=== PATIENT | male | born 1965 | race Caucasian/White ===

== ENCOUNTER 2024-02-06 16:26 | Emergency (ER) | payer MEDICAID ==
[~2024-02-06] VITALS: Ht 172.7 cm; Wt 82.0 kg
[~2024-02-06 16:26] MED LIST: OMEP5TAB; PAXIL; PEN250T
[2024-02-06 17:02] LABS: Urine Bacteria FEW /hpf (None Seen); Urine Blood Negative /uL (Negative); Urine Clarity Clear (Clear); Urine Color Light-Yellow (Yellow); Urine Hyaline Cast FEW /lpf (0 - 2); Urine Protein, UAD Negative (Negative); Urine Specific Gravity 1.009 (1.001-1.035); Urine Urobilinogen Normal (Negative); Urine WBC 1 /hpf (0 - 3); Urine pH 6.5 (5.0-9.0)
[2024-02-06] MEDS: levETIRAcetam 1000 mg/100ml 100 ML IV ONE (17:44)
[2024-02-06 17:49] LABS: Basophils # (auto) 0 10 ^3/uL (0-0.2); Basophils % (auto) 0.4 % (0.0-2.0); Eosinophils # (auto) 0 10 ^3/uL (0-0.8); Eosinophils % (auto) 0.3 % (0.0-7.0); Hematocrit 42.3 % (41.0-53.0); Hemoglobin 14.6 g/dL (13.5-17.5); Lymphocytes # (auto) 1.6 10 ^3/uL (0.4-5.4); Lymphocytes % (auto) 12.7 % (10.0-50.0); Mean Corpuscular Hgb Conc. 34.5 g/dL (32.0-36.0); Mean Corpuscular Volume 101.3 fL (80.0-100.0); Monocytes # (auto) 0.7 10 ^3/uL (0-1.3); Monocytes % (auto) 5.8 % (0.0-12.0); Neutrophils # (auto) 9.9 10 ^3/uL (1.6-8.6); Neutrophils % (auto) 80.8 % (37.0-80.0); Red Blood Cells 4.17 10^6/uL (4.5-5.90); Red Cell Distribution Width 13.1 % (11.8-14.3); White Blood Cell 12.3 10^3/uL (4.4-10.8)
[2024-02-06 18:01] LABS: Carbon Dioxide 23 mmol/L (20-30)
[2024-02-06 18:02] LABS: Calcium 7.5 mg/dL (8.7-10.4)
[2024-02-06 18:07] LABS: Glucose 115 mg/dL (74-106)
[2024-02-06 18:14] VITALS: BP 140/90
[2024-02-06 18:15] VITALS: PULSE 96; RESP 20; O2SAT 96
[2024-02-06 18:46] LABS: BUN/Creatinine Ratio 4.8 (10.0-20.0); Blood Urea Nitrogen < 5 mg/dL (9-23)
[2024-02-06 18:51] LABS: Anion Gap 9 (5-15); Chloride 109 mmol/L (98-107); Potassium 3.6 mmol/L (3.5-5.1); Sodium 141 mmol/L (136-145)
== END 2024-02-06 18:54 | disposition left against medical advice (07) ==
LOC: EDBD 16:26 → ER 16:26
DX: R56.9 Unspecified convulsions (principal); F17.210 Nicotine dependence, cigarettes, uncomplicated; Z91.199 Patient's noncompliance with other medical treatment and regimen due to unspecified reason; Z90.49 Acquired absence of other specified parts of digestive tract
CPT/HCPCS: 36415; 80048; 81001; 85025; 93005; 96374; 99284; J1953; 96365